=== PATIENT | male | born 1995 | race Caucasian/White ===

== ENCOUNTER 2024-05-13 08:34 | Emergency (ER) | payer OTHER ==
[~2024-05-13] VITALS: Ht 175.3 cm; Wt 94.5 kg
[2024-05-13] MEDS ORDERED: IBUP-1022 PO (08:40)
[2024-05-13 11:13] VITALS: BP 158/69; TEMP 97.2; O2SAT 96
[2024-05-13] MEDS ORDERED: METH-1165 PO (11:14)
[2024-05-13] MEDS ORDERED: ASPE4PAD TOP (11:14)
[2024-05-13] MEDS ORDERED: NAPR-837 PO (11:14)
[2024-05-13] MEDS: LIDOCAINE 5% (LIDODERM) PATCH TD ONE (11:22)
[2024-05-13] MEDS: NAPROXEN 250 MG TAB PO ONE (11:22)
== END 2024-05-13 11:30 | disposition home or self-care (01) ==
LOC: EDSEX 08:34 → M ED 08:34
DX: M54.6 Pain in thoracic spine (principal); X50.0XXA Overexertion from strenuous movement or load, initial encounter; Y92.9 Unspecified place or not applicable; Y93.89 Activity, other specified; Y99.0 Civilian activity done for income or pay; Z88.6 Allergy status to analgesic agent